=== PATIENT | female | born 1960 | race Two or more races ===

== ENCOUNTER 2017-05-03 15:05 | Inpatient (IN) | payer MEDICAID, OTHER ==
[~2017-05-03] VITALS: Ht 167.6 cm; Wt 113.4 kg
[2017-05-03] MEDS ORDERED: LORazepam 2MG/ML-1ML VIAL ONE (15:12)
[2017-05-03] MEDS ORDERED: SODIUM CHLORIDE 0.9% 1,000 ML IV ONE (15:18)
[2017-05-03] MEDS ORDERED: LORazepam 2MG/ML-1ML VIAL IV ONE ×2 (15:30→16:30)
[2017-05-03 15:48] LABS: Eosinophils # (auto) 0.1 uL; Mean Corpuscular Volume 104.4 fL (80.0-100.0); Mean Platelet Volume 8.6 fL (6.9-10.8); Nucleated Red Blood Cells % 0.2 %
[2017-05-03 15:49] LABS: Basophils # (auto) 0 uL; Basophils % (auto) 0.3 % (0.0-2.0); Eosinophils % (auto) 0.7 % (0.0-7.0); Hematocrit 31.9 % (36.0-46.0); Hemoglobin 10.4 g/dL (12.2-16.2); Lymphocytes # (auto) 1.5 uL; Mean Corpuscular Hemoglobin 33.9 pg (28.0-32.0); Mean Corpuscular Hgb Conc. 32.5 g/dL (32.0-36.0); Monocytes % (auto) 6.9 % (0.0-12.0); Neutrophils # (auto) 11.3 uL; Neutrophils % (auto) 81.1 % (37.0-80.0); Platelet Count (auto) 411 10^3/uL (140-450); Red Cell Distribution Width 16.1 % (11.8-14.3)
[2017-05-03 16:04] LABS: INR 1.27 (0.9-1.15); Partial Thromboplastin Time 23.7 sec (22.64-33.71); Prothrombin Time 13.9 sec (9.37-12.3)
[2017-05-03 16:09] LABS: Lactic Acid w/Reflex 3.7 mmol/L (0.4-2.0)
[2017-05-03 16:10] LABS: Albumin 1.8 g/dL (3.4-5.0); BUN/Creatinine Ratio 10.2; Calcium 7.5 mg/dL (8.5-10.1); Magnesium 1.9 mg/dL (1.6-2.6); Potassium 5.2 mmol/L (3.5-5.1); Total Protein 6.4 g/dL (6.4-8.2)
[2017-05-03 16:19] LABS: REFLEX LACTIC ACID YES OR NO YES
[2017-05-03 16:21] LABS: Urine Blood 2+ /uL (Negative); Urine Color Yellow (Yellow); Urine Glucose Normal (Normal); Urine Ketone Negative (Negative); Urine Mucus FEW (None Seen); Urine Nitrite POSITIVE (Negative); Urine RBC 1 /hpf (0 - 4); Urine Squamous Epithelial Cell FEW /hpf (<5)
[2017-05-03 16:43] LABS: Urine Bilirubin Negative (Negative)
[2017-05-03] MEDS ORDERED: cefTRIAXone 1GM/10ml IVPUSH 10 ML IV ONE (17:00)
[2017-05-03] MEDS ORDERED: LEVOFLOXACIN 500MG 100 ML IV ONE (17:00)
[2017-05-03] MEDS ORDERED: FUROSEMIDE 20 MG/2 ML VIAL IV ONE (17:00)
[2017-05-03] MEDS: LABETALOL HCL 5 MG/ML ML 20ML VIAL IV ONE ×3 (17:00→18:01)
[2017-05-03] MEDS ORDERED: hydrALAZINE HCL 20 MG/ML VL ONE (18:36)
[2017-05-03] MEDS ORDERED: cloNIDine 0.2 mg/24hr 7DAY PATCH TD ONE ×2 (18:36→18:45)
[2017-05-03] MEDS ORDERED: hydrALAZINE HCL 20 MG/ML VL IV ONE (18:45)
[2017-05-03 18:59] LABS: B-Type Natriuretic Peptide 40.95 pg/mL (0-100)
[2017-05-03 19:01] LABS: Temperature: 22.2 C (20.0-25.0)
[2017-05-03] MEDS ORDERED: NICARDIPINE 25MG/250ML BAG KIT 250 ML IV ONE (19:30)
[2017-05-03] MEDS: NICARDIPINE 25MG/250ML BAG KIT 250 ML IV SCH (19:52)
[2017-05-03] MEDS ORDERED: ONDANSETRON HCL 4 MG/2 ML VIAL IV ONE (21:00)
[2017-05-03] MEDS ORDERED: HYDROmorphone HCL 2 MG/ML VL IV ONE (21:00)
[2017-05-03] MEDS ORDERED: NITROGLYCERIN 0.4 MG SL TAB SL PRN (22:15)
[2017-05-03] MEDS ORDERED: HYDROcodone-ACET 5/325MG TAB PO PRN (22:15)
[2017-05-03] MEDS ORDERED: ONDANSETRON HCL 4 MG/2 ML VIAL IV PRN (22:15)
[2017-05-03] MEDS ORDERED: ACETAMINOPHEN 325 MG TAB PO PRN (22:15)
[2017-05-03] MEDS ORDERED: VANCOMYCIN PER PHARMACY 0 MG IV SCH (22:15)
[2017-05-03] MEDS ORDERED: MORPHINE SULF INJ 2 MG/ML SYRINGE 1ML IV PRN (22:15)
[2017-05-03] MEDS: SODIUM CHLORIDE 0.9% 1,000 ML IV SCH (22:30)
[2017-05-03] MEDS ORDERED: VANCOMYCIN 1GM/250ML 250 ML IV ONE (23:00)
[2017-05-03 23:15] LABS: Allen Test Yes; Base Excess 4.5 mmol/L (-2.0-2.0); Blood 02Sat 96.3 % (96-100); Blood COHb 0.3 % (0.5-1.5); Blood MetHb 0.2 % (0.0-1.5); HCO3 28.1 mmol/L (22-26.0); HHb 3.7 % (0.0-5.0); MODE NASAL CANNULA; O2Hb 95.8 % (94.0-97.0); PCO2 37.7 mmHg (35.0-45.0); PCO2(T) 37.7 mmHg (35.0-45.0); PO2 100.4 mmHg (80.0-100.0); PO2(T) 100.4 mmHg (80.0-100.0); Sample Type Arterial
[2017-05-04] VITALS (12 sets, daily range): BP systolic 82–150; BP diastolic 45–92
[2017-05-04] MEDS ORDERED: methylPREDNISolone SOD SUCC 125 MG/2 ML VL IV ONE (00:15)
[2017-05-04] MEDS: NICARDIPINE 25MG/250ML BAG KIT 250 ML IV SCH ×2 (00:45→05:36)
[2017-05-04] MEDS ORDERED: FAMOTIDINE (10MG/ML) 2ML VL IV ONE (00:49)
[2017-05-04] MEDS: PIPERACILLIN-TAZOB 3.375GM 50 ML IV SCH ×4 (01:00→17:50)
[2017-05-04] MEDS ORDERED: ETOMIDATE (2MG/ML) 20ML VIAL IV ONE ×2 (01:04→01:15)
[2017-05-04] MEDS ORDERED: NOREPINEPHRINE 8 MG/250ML KIT 250 ML IV ONE (01:04)
[2017-05-04] MEDS ORDERED: SUCCINYLCHOLINE CHLORIDE 20 MG/ML 10ML VIAL IV ONE ×2 (01:04→01:15)
[2017-05-04] MEDS: NOREPINEPHRINE 8 MG/250ML KIT 250 ML IV SCH (01:20)
[2017-05-04] MEDS: MIDAZOLAM DRIP 50 mg/50mL 50 ML IV SCH (01:20)
[2017-05-04 01:38] LABS: BUN/Creatinine Ratio 10.8; Calcium 7.3 mg/dL (8.5-10.1); Potassium 3.4 mmol/L (3.5-5.1)
[2017-05-04] MEDS ORDERED: ENOXAPARIN SOD 120 MG/0.8 ML SYRINGE SC SCH (05:00)
[2017-05-04 05:21] LABS: Basophils # (auto) 0.2 uL; Eosinophils # (auto) 0 uL; Hematocrit 30.9 % (36.0-46.0); Monocytes # (auto) 0.3 uL
[2017-05-04 05:22] LABS: Basophils % (auto) 1.4 % (0.0-2.0); Eosinophils % (auto) 0.2 % (0.0-7.0); Lymphocytes # (auto) 0.4 uL; Lymphocytes % (auto) 3.3 % (10.0-50.0); Mean Corpuscular Hemoglobin 33.3 pg (28.0-32.0); Mean Corpuscular Hgb Conc. 32.3 g/dL (32.0-36.0); Mean Corpuscular Volume 103.1 fL (80.0-100.0); Mean Platelet Volume 8.5 fL (6.9-10.8); Monocytes % (auto) 2.7 % (0.0-12.0); Neutrophils # (auto) 11.5 uL; Neutrophils % (auto) 92.4 % (37.0-80.0); Nucleated Red Blood Cells % 0.1 %; Platelet Count (auto) 355 10^3/uL (140-450); Red Cell Distribution Width 15.2 % (11.8-14.3); White Blood Cell 12.5 10^3/uL (4.4-10.8)
[2017-05-04 05:33] LABS: Albumin 1.6 g/dL (3.4-5.0); BUN/Creatinine Ratio 10.6; Calcium 7.3 mg/dL (8.5-10.1); Potassium 3.5 mmol/L (3.5-5.1)
[2017-05-04 05:38] LABS: Bilirubin, Total 3.6 mg/dL (0.2-1.0); Total Protein 5.7 g/dL (6.4-8.2)
[2017-05-04] MEDS: LACTULOSE 20Gm/30ML SOLN PO SCH ×5 (06:09→22:10)
[2017-05-04] MEDS ORDERED: IOHEXOL 350 MG/ML 100ML IJ ONE (07:02)
[2017-05-04 09:11] LABS: Hepatitis B Surface Antibody Negative
[2017-05-04 09:37] LABS: Allen Test Modified; Base Excess 4.6 mmol/L (-2.0-2.0); Blood 02Sat 98.2 % (96-100); Blood COHb 0.3 % (0.5-1.5); Blood MetHb 0.3 % (0.0-1.5); HCO3 27.2 mmol/L (22-26.0); HHb 1.8 % (0.0-5.0); MODE VENT - A/C; O2Hb 97.6 % (94.0-97.0); PCO2 33.2 mmHg (35.0-45.0); PCO2(T) 33.2 mmHg (35.0-45.0); PO2 180.5 mmHg (80.0-100.0); PO2(T) 180.5 mmHg (80.0-100.0); Room 1010-ER; Sample Type Arterial; pH 7.531 (7.350-7.450)
[2017-05-04] MEDS ORDERED: FAMOTIDINE (10MG/ML) 2ML VL IV SCH (10:00)
[2017-05-04] MEDS ORDERED: VANCOMYCIN 1,250 MG in SODIUM CHL 0.9% 250 ML IV SCH (10:00)
[2017-05-04] MEDS ORDERED: ENOXAPARIN SOD 40 MG/0.4 ML SYRINGE SC SCH (10:00)
[2017-05-04] MEDS: PANTOPRAZOLE 40 MG/10 ML VIAL IV SCH (10:35)
[2017-05-04] MEDS: SODIUM CHLORIDE 0.9% 1,000 ML IV SCH ×2 (11:45→16:30)
[2017-05-04] MEDS ORDERED: SODIUM CHLORIDE 0.9% 1,000 ML IV SCH (16:15)
[2017-05-04] MEDS ORDERED: VANCOMYCIN 1,250 MG in D5W 5% 250 ML IV SCH (22:00)
[2017-05-04] MEDS: NYSTATIN TOPICAL POWDER 15GM TOP SCH (22:21)
[2017-05-05] VITALS (12 sets, daily range): BP systolic 87–157; BP diastolic 46–97
[2017-05-05] MEDS: PIPERACILLIN-TAZOB 3.375GM 50 ML IV SCH ×4 (00:25→18:30)
[2017-05-05] MEDS: MIDAZOLAM DRIP 50 mg/50mL 50 ML IV SCH ×3 (01:03→12:31)
[2017-05-05] MEDS: NOREPINEPHRINE 8 MG/250ML KIT 250 ML IV SCH (01:15)
[2017-05-05] MEDS: SODIUM CHLORIDE 0.9% 1,000 ML IV SCH ×3 (02:00→22:04)
[2017-05-05] MEDS: LACTULOSE 20Gm/30ML SOLN PO SCH ×6 (02:00→22:00)
[2017-05-05 04:21] LABS: Basophils # (auto) 0.1 uL; Basophils % (auto) 0.5 % (0.0-2.0); Eosinophils # (auto) 0.1 uL; Eosinophils % (auto) 0.9 % (0.0-7.0); Hematocrit 28.5 % (36.0-46.0); Hemoglobin 9.4 g/dL (12.2-16.2); Lymphocytes # (auto) 1.3 uL; Lymphocytes % (auto) 11.1 % (10.0-50.0); Mean Corpuscular Hemoglobin 33.6 pg (28.0-32.0); Mean Corpuscular Hgb Conc. 33.1 g/dL (32.0-36.0); Mean Corpuscular Volume 101.5 fL (80.0-100.0); Mean Platelet Volume 8.2 fL (6.9-10.8); Monocytes # (auto) 0.9 uL; Monocytes % (auto) 7.7 % (0.0-12.0); Neutrophils # (auto) 9.6 uL; Neutrophils % (auto) 79.8 % (37.0-80.0); Platelet Count (auto) 343 10^3/uL (140-450); Red Cell Distribution Width 15.8 % (11.8-14.3)
[2017-05-05 04:26] LABS: INR 1.41 (0.9-1.15); Prothrombin Time 15.4 sec (9.37-12.3)
[2017-05-05 04:49] LABS: Albumin 1.5 g/dL (3.4-5.0); BUN/Creatinine Ratio 10.3; Bilirubin, Total 2.9 mg/dL (0.2-1.0); Calcium 6.9 mg/dL (8.5-10.1); Magnesium 1.6 mg/dL (1.6-2.6); Total Protein 5.5 g/dL (6.4-8.2)
[2017-05-05 07:32] LABS: Allen Test Modified; Base Excess 1.6 mmol/L (-2.0-2.0); Blood 02Sat 96.7 % (96-100); Blood COHb 0.2 % (0.5-1.5); Blood MetHb 0.3 % (0.0-1.5); HCO3 24.1 mmol/L (22-26.0); HHb 3.3 % (0.0-5.0); MODE VENT - A/C; O2Hb 96.2 % (94.0-97.0); PCO2 30.2 mmHg (35.0-45.0); PCO2(T) 30.2 mmHg (35.0-45.0); PO2 98.9 mmHg (80.0-100.0); PO2(T) 98.9 mmHg (80.0-100.0); Room 1010-ER; Sample Type Arterial; pH 7.519 (7.350-7.450)
[2017-05-05] MEDS ORDERED: ENOXAPARIN SOD 120 MG/0.8 ML SYRINGE SC SCH (10:00)
[2017-05-05] MEDS ORDERED: LIDOCAINE 1% IV SCH (10:15)
[2017-05-05] MEDS ORDERED: FUROSEMIDE 20 MG/2 ML VIAL IV ONE (10:15)
[2017-05-05] MEDS ORDERED: POTASSIUM CHL IV SCH (10:15)
[2017-05-05] MEDS ORDERED: POTASSIUM CHLORIDE 40 MEQ, LIDOCAINE 1% (LOCAL ANESTH.) 4 ML in SODIUM CHL 0.9% 100 ML IV ONE (10:45)
[2017-05-05] MEDS: PANTOPRAZOLE 40 MG/10 ML VIAL IV SCH (11:03)
[2017-05-05] MEDS: NYSTATIN TOPICAL POWDER 15GM TOP SCH ×2 (11:03→22:05)
[2017-05-05] MEDS ORDERED: MAGNESIUM SULFATE 1GM/100ML 100 ML IV ONE (11:30)
[2017-05-06] MEDS ORDERED: ENOXAPARIN SOD 40 MG/0.4 ML SYRINGE SC SCH (10:00)
== END 2017-05-05 23:07 | disposition short-term general hospital (02) | DRG 720 ==
LOC: EDUNIT# 15:05 → ER 15:15 → OVERFLOW 15:16
PROVIDERS: ADMIT Nurse Practitioner; ATTEND Internal Medicine
PROC: 5A1935Z Respiratory Ventilation, Less than 24 Consecutive Hours (ICD-10-PCS; principal; 2017-05-04)
PROC: 0BH17EZ Insertion of Endotracheal Airway into Trachea, Via Natural or Artificial Opening (ICD-10-PCS; 2017-05-04)
PROC: 02HV33Z Insertion of Infusion Device into Superior Vena Cava, Percutaneous Approach (ICD-10-PCS; 2017-05-04)
DX: A41.9 Sepsis, unspecified organism (principal); J96.01 Acute respiratory failure with hypoxia; I21.4 Non-ST elevation (NSTEMI) myocardial infarction; N17.0 Acute kidney failure with tubular necrosis; R65.21 Severe sepsis with septic shock; J81.1 Chronic pulmonary edema; G93.41 Metabolic encephalopathy; E43 Unspecified severe protein-calorie malnutrition; L89.303 Pressure ulcer of unspecified buttock, stage 3; K76.0 Fatty (change of) liver, not elsewhere classified; E66.01 Morbid (severe) obesity due to excess calories; E87.5 Hyperkalemia; E87.6 Hypokalemia; F10.10 Alcohol abuse, uncomplicated; F12.90 Cannabis use, unspecified, uncomplicated; I51.7 Cardiomegaly; K52.9 Noninfective gastroenteritis and colitis, unspecified; K70.40 Alcoholic hepatic failure without coma; N39.0 Urinary tract infection, site not specified; N18.3 Chronic kidney disease, stage 3 (moderate); I12.9 Hypertensive chronic kidney disease with stage 1 through stage 4 chronic kidney disease, or unspecified chronic kidney disease; M79.7 Fibromyalgia; M16.0 Bilateral primary osteoarthritis of hip; M47.816 Spondylosis without myelopathy or radiculopathy, lumbar region; Z98.84 Bariatric surgery status; Z86.73 Personal history of transient ischemic attack (TIA), and cerebral infarction without residual deficits; Z90.49 Acquired absence of other specified parts of digestive tract; Z68.41 Body mass index [BMI] 40.0-44.9, adult
CPT/HCPCS: 36415; 36556; 36600; 51702; 70450; 71010; 74176; 76705; 80048; 80053; 80202; 80307; 80320; 81001; 82140; 82805; 83605; 83735; 83880; 84443; 84484; 85025; 85379; 85610; 85730; 86704; 86706; 86708; 86803; 87040; 87070; 87077; 87086; 87088; 87186; 87205; 87340; 93306; 93970; 94003; 96365; 96367; 96375; 99291; C9113; G0378; J0330; J1956; J2001; J2250; J2405; J2543; J3490; J7060

== ENCOUNTER 2017-07-09 11:00 | Inpatient (IN) | payer MEDICAID ==
[~2017-07-09] VITALS: Ht 157.5 cm; Wt 117.7 kg
[2017-07-09] MEDS ORDERED: SODIUM CHLORIDE 0.9% 1,000 ML IV ONE (11:19)
[2017-07-09 12:39] LABS: Hematocrit 32.4 % (36.0-46.0); Hemoglobin 10.5 g/dL (12.2-16.2); Mean Corpuscular Hemoglobin 29.3 pg (28.0-32.0); Mean Corpuscular Hgb Conc. 32.4 g/dL (32.0-36.0); Mean Corpuscular Volume 90.5 fL (80.0-100.0); Platelet Count (auto) 362 10^3/uL (140-450); Red Blood Cells 3.58 10^6/uL (4.0-5.20); Red Cell Distribution Width 17.6 % (11.8-14.3)
[2017-07-09 12:51] LABS: INR 1.26 (0.9-1.15); Partial Thromboplastin Time 25.9 sec (22.64-33.71); Prothrombin Time 13.8 sec (9.37-12.3)
[2017-07-09 12:52] LABS: Basophils % (manual) 0 (0.0-2.0); Eosinophils % (manual) 0 (0-7); Metamyelocytes % 0; Myelocytes % 0
[2017-07-09 12:53] LABS: Blast Cells 0; Promyelocytes % 0; Reactive Lymphocytes 0
[2017-07-09 12:57] LABS: BUN/Creatinine Ratio 15.8; Magnesium 1.3 mg/dL (1.6-2.6); Potassium 3.2 mmol/L (3.5-5.1)
[2017-07-09 13:03] LABS: Albumin 1.5 g/dL (3.4-5.0); Bilirubin, Total 1.8 mg/dL (0.2-1.0); Total Protein 5.7 g/dL (6.4-8.2)
[2017-07-09 13:27] LABS: Band Neutrophils % (manual) 5; Lymphocytes % (manual) 6 (10.0-50.0); Monocytes % (manual) 3 (0-12)
[2017-07-09] MEDS ORDERED: SODIUM CHLORIDE 0.9% 1,000 ML IV SCH (16:02)
[2017-07-09] MEDS ORDERED: NITROGLYCERIN 0.4 MG SL TAB SL PRN ×2 (16:15→16:30)
[2017-07-09] MEDS ORDERED: LINEZOLID 600MG/300ML 300 ML IV SCH (16:15)
[2017-07-09] MEDS ORDERED: LORazepam 0.5 MG TAB PO PRN ×2 (16:15→16:30)
[2017-07-09] MEDS ORDERED: MORPHINE SULFATE 4 MG/ML SYR/VIAL IV PRN ×5 (16:15→16:30)
[2017-07-09] MEDS ORDERED: LACTULOSE 20Gm/30ML SOLN PO PRN ×2 (16:15→16:30)
[2017-07-09] MEDS ORDERED: PIPERACILLIN-TAZOB 3.375GM 50 ML IV ONE ×2 (16:15→16:30)
[2017-07-09] MEDS ORDERED: PROMETHAZINE HCL 25 MG/ML 1ML IV PRN ×2 (16:15→16:30)
[2017-07-09 16:33] LABS: Amylase 7 U/L (25-115); Lipase 22 U/L (73-393)
[2017-07-09 16:47] LABS: Calcium 7.3 mg/dL (8.5-10.1)
[2017-07-09] MEDS ORDERED: metroNIDAZOLE 500MG/100ML 100 ML IV SCH (18:00)
[2017-07-09] MEDS ORDERED: PIPERACILLIN-TAZOB 3.375GM 50 ML IV SCH (18:00)
[2017-07-09] MEDS: metroNIDAZOLE 500MG/100ML 100 ML IV SCH ×2 (18:42→23:00)
[2017-07-09] MEDS: SODIUM CHLORIDE 0.9% 1,000 ML IV SCH (18:47)
[2017-07-09] MEDS: LINEZOLID 600MG/300ML 300 ML IV SCH (19:45)
[2017-07-09 23:28] LABS: Urine Bacteria MANY /hpf (None Seen); Urine Blood Negative /uL (Negative); Urine Mucus FEW (None Seen); Urine WBC 2 /hpf (0 - 5)
[2017-07-10] VITALS (28 sets, daily range): BP systolic 65–161; BP diastolic 27–113
[2017-07-10 00:07] LABS: Alcohol, Urine < 3.0 mg/dL (0-5); Amphetamine Screen, Urine NEGATIVE (NEGATIVE); Barbiturate Scree,Urine NEGATIVE (NEGATIVE); Benzodiazephine Screen, Urine NEGATIVE (NEGATIVE); Cannabinoid Screen, Urine NEGATIVE (NEGATIVE); Cocaine Screen, Urine NEGATIVE (NEGATIVE); Opiate Scree,Urine POSITIVE (NEGATIVE); Phencyclidine Screen, Urine NEGATIVE (NEGATIVE)
[2017-07-10] MEDS: PIPERACILLIN-TAZOB 3.375GM 50 ML IV SCH ×4 (00:29→19:47)
[2017-07-10] MEDS ORDERED: ALBUMIN 5% 250 ML IV ONE (01:45)
[2017-07-10] MEDS: SODIUM CHLORIDE 0.9% 1,000 ML IV SCH ×3 (02:15→19:00)
[2017-07-10] MEDS: LINEZOLID 600MG/300ML 300 ML IV SCH ×2 (03:55→18:30)
[2017-07-10] MEDS: metroNIDAZOLE 500MG/100ML 100 ML IV SCH ×4 (05:00→23:45)
[2017-07-10] MEDS ORDERED: SODIUM CHLORIDE 0.9% 500 ML IV ONE ×2 (05:00→20:35)
[2017-07-10 05:44] LABS: Basophils # (auto) 0.1 uL; Basophils % (auto) 0.3 % (0.0-2.0); Eosinophils # (auto) 0 uL; Hematocrit 28.9 % (36.0-46.0); Hemoglobin 9.6 g/dL (12.2-16.2); Lymphocytes # (auto) 0.6 uL; Lymphocytes % (auto) 2.4 % (10.0-50.0); Mean Corpuscular Hemoglobin 30.2 pg (28.0-32.0); Mean Corpuscular Hgb Conc. 33.2 g/dL (32.0-36.0); Mean Corpuscular Volume 90.9 fL (80.0-100.0); Monocytes # (auto) 0.7 uL; Neutrophils # (auto) 23.5 uL; Neutrophils % (auto) 94.3 % (37.0-80.0); Nucleated Red Blood Cells % 0.1 %; Platelet Count (auto) 407 10^3/uL (140-450); Red Blood Cells 3.17 10^6/uL (4.0-5.20); Red Cell Distribution Width 18.1 % (11.8-14.3); White Blood Cell 24.9 10^3/uL (4.4-10.8)
[2017-07-10 05:47] LABS: INR 1.56 (0.9-1.15); Partial Thromboplastin Time 35.9 sec (22.64-33.71); Prothrombin Time 17.1 sec (9.37-12.3)
[2017-07-10 05:55] LABS: Chloride 110 mmol/L (98-107); Sodium 145 mmol/L (136-145)
[2017-07-10] MEDS ORDERED: METOPROLOL TARTRATE 1MG/1ML-5ML VIAL IV ONE ×2 (05:56→06:15)
[2017-07-10 06:03] LABS: Alanine Aminotransferase 32 U/L (13-56); Albumin 1.6 g/dL (3.4-5.0); Anion Gap 14 (5-15); BUN/Creatinine Ratio 13.3; Blood Urea Nitrogen 16 mg/dL (7-18); Calcium 6.9 mg/dL (8.5-10.1); Carbon Dioxide 21 mmol/L (21-32); GFR African American 59 mL/min; GFR Non-African American 49 mL/min; Glucose 115 mg/dL (74-106)
[2017-07-10 06:06] LABS: Alkaline Phosphatase 133 U/L (45-117); Aspartate Aminotransferase 31 U/L (15-37); Bilirubin, Total 2.6 mg/dL (0.2-1.0)
[2017-07-10 06:13] LABS: Potassium 2.3 mmol/L (3.5-5.1)
[2017-07-10] MEDS ORDERED: POTASSIUM CHL 20 Meq TABLET PO ONE (07:00)
[2017-07-10] MEDS ORDERED: PANTOPRAZOLE 40 MG TAB PO SCH (10:00)
[2017-07-10] MEDS ORDERED: ENOXAPARIN SOD 40 MG/0.4 ML SYRINGE SC SCH (10:00)
[2017-07-10] MEDS: PANTOPRAZOLE 40 MG TAB PO SCH (10:19)
[2017-07-10] MEDS: ENOXAPARIN SOD 40 MG/0.4 ML SYRINGE SC SCH (10:19)
[2017-07-10 12:57] LABS: Cholesterol < 50 mg/dL (< 200); HDL Cholesterol 11 mg/dL (40-59); LDL Cholesterol 27 mg/dL (< 100); Triglycerides 85 mg/dL (< 150)
[2017-07-10] MEDS: NOREPINEPHRINE 8 MG/250ML KIT 250 ML IV SCH ×2 (13:53→17:45)
[2017-07-10] MEDS ORDERED: LACTULOSE 20Gm/30ML SOLN PO ONE (14:30)
[2017-07-10] MEDS ORDERED: PHENYLEPHRINE INJ 20 MG in SODIUM CHL 0.9% 250 ML IV SCH (14:40)
[2017-07-10] MEDS ORDERED: POTASSIUM CHLORIDE 40 MEQ, LIDOCAINE 1% (LOCAL ANESTH.) 4 ML in SODIUM CHL 0.9% 100 ML IV ONE (14:45)
[2017-07-10] MEDS: PHENYLEPHRINE INJ 20 MG in D5W 5% 250 ML IV SCH ×4 (16:00→20:30)
[2017-07-10 16:07] LABS: Albumin 1.3 g/dL (3.4-5.0); BUN/Creatinine Ratio 11.6; Bilirubin, Total 2.8 mg/dL (0.2-1.0); Calcium 6.6 mg/dL (8.5-10.1); Potassium 3.1 mmol/L (3.5-5.1); Total Protein 4.7 g/dL (6.4-8.2)
[2017-07-10] MEDS: MAGNESIUM SULFATE 1GM/100ML 100 ML IV SCH ×2 (17:00→17:57)
[2017-07-10 17:11] LABS: Hematocrit 30.7 % (36.0-46.0); Hemoglobin 9.8 g/dL (12.2-16.2); Mean Corpuscular Hemoglobin 29.8 pg (28.0-32.0); Mean Corpuscular Hgb Conc. 32.1 g/dL (32.0-36.0); Platelet Count (auto) 417 10^3/uL (140-450); Red Cell Distribution Width 18.1 % (11.8-14.3); White Blood Cell 27.1 10^3/uL (4.4-10.8)
[2017-07-10 17:22] LABS: Band Neutrophils % (manual) 0; Basophils % (manual) 0 (0.0-2.0); Blast Cells 0; Eosinophils % (manual) 0 (0-7); Metamyelocytes % 0; Myelocytes % 0; Promyelocytes % 0; Reactive Lymphocytes 0
[2017-07-10 17:41] LABS: Lymphocytes % (manual) 4 (10.0-50.0); Monocytes % (manual) 3 (0-12)
[2017-07-10] MEDS ORDERED: SODIUM CHLORIDE 0.9% 1,000 ML IV ONE ×2 (17:45→22:35)
[2017-07-10] MEDS ORDERED: PHENYLEPHRINE IV 250 ML IV ONE ×2 (18:19→20:24)
[2017-07-10] MEDS: MORPHINE SULFATE 4 MG/ML SYR/VIAL IV PRN (18:30)
[2017-07-10] MEDS ORDERED: LORazepam 2MG/ML-1ML VIAL ONE (21:40)
[2017-07-10] MEDS ORDERED: LORazepam 2MG/ML-1ML VIAL IV ONE (22:00)
[2017-07-10] MEDS ORDERED: HEPARIN 1,000 UNITS/ml 1ML VIAL ONE (22:09)
[2017-07-10] MEDS ORDERED: HEPARIN 1,000 UNITS/ml 1ML VIAL IV ONE (22:15)
[2017-07-11] VITALS (41 sets, daily range): BP systolic 87–246; BP diastolic 39–211
[2017-07-11] MEDS: PIPERACILLIN-TAZOB 3.375GM 50 ML IV SCH ×4 (00:05→18:00)
[2017-07-11] MEDS: PHENYLEPHRINE INJ 20 MG in D5W 5% 250 ML IV SCH ×3 (00:14→08:12)
[2017-07-11] MEDS: SODIUM CHLORIDE 0.9% 1,000 ML IV SCH ×4 (01:45→22:46)
[2017-07-11] MEDS: LINEZOLID 600MG/300ML 300 ML IV SCH ×2 (03:15→15:00)
[2017-07-11] MEDS: MORPHINE SULFATE 4 MG/ML SYR/VIAL IV PRN ×2 (03:58→23:15)
[2017-07-11 04:06] LABS: Hemoglobin 10.8 g/dL (12.2-16.2); Red Cell Distribution Width 18.3 % (11.8-14.3)
[2017-07-11 04:08] LABS: Hematocrit 32.8 % (36.0-46.0); Mean Corpuscular Hemoglobin 29.9 pg (28.0-32.0); Mean Corpuscular Hgb Conc. 32.8 g/dL (32.0-36.0); Mean Corpuscular Volume 91.3 fL (80.0-100.0); Platelet Count (auto) 539 10^3/uL (140-450); Red Blood Cells 3.59 10^6/uL (4.0-5.20)
[2017-07-11 04:22] LABS: Albumin 1.4 g/dL (3.4-5.0); White Blood Cell 42.7 10^3/uL (4.4-10.8)
[2017-07-11 04:23] LABS: Basophils % (manual) 0 (0.0-2.0); Blast Cells 0; Eosinophils % (manual) 0 (0-7); Metamyelocytes % 0; Myelocytes % 0; Promyelocytes % 0; Reactive Lymphocytes 0
[2017-07-11 04:24] LABS: BUN/Creatinine Ratio 8.1
[2017-07-11 04:27] LABS: Bilirubin, Total 3.2 mg/dL (0.2-1.0)
[2017-07-11] MEDS ORDERED: METOPROLOL TARTRATE 1MG/1ML-5ML VIAL IV ONE (05:00)
[2017-07-11] MEDS ORDERED: POTASSIUM CHL 20MEQ/100ML 200 ML IV ONE (05:07)
[2017-07-11] MEDS: POTASSIUM CHL 20MEQ/100ML 100 ML IV SCH ×2 (05:10→07:15)
[2017-07-11 05:26] LABS: Band Neutrophils % (manual) 4; Lymphocytes % (manual) 4 (10.0-50.0); Monocytes % (manual) 2 (0-12)
[2017-07-11] MEDS: metroNIDAZOLE 500MG/100ML 100 ML IV SCH ×4 (05:30→22:43)
[2017-07-11 05:51] LABS: Urine Bacteria FEW /hpf (None Seen); Urine Blood 2+ /uL (Negative); Urine Mucus FEW (None Seen); Urine Specific Gravity 1.029 (1.001-1.035); Urine WBC 9 /hpf (0 - 5)
[2017-07-11] MEDS: NOREPINEPHRINE 8 MG/250ML KIT 250 ML IV SCH ×2 (08:12→21:52)
[2017-07-11] MEDS: PANTOPRAZOLE 40 MG TAB PO SCH (10:00)
[2017-07-11] MEDS ORDERED: SODIUM CHLORIDE 0.9% 1,000 ML IV ONE ×3 (10:15→16:15)
[2017-07-11] MEDS: ENOXAPARIN SOD 40 MG/0.4 ML SYRINGE SC SCH (11:00)
[2017-07-11] MEDS: RIFAXIMIN 550 MG TAB PO SCH ×2 (12:00→22:43)
[2017-07-11] MEDS ORDERED: LORazepam 2MG/ML-1ML VIAL IV PRN (12:00)
[2017-07-11 18:12] LABS: Urine Bacteria FEW /hpf (None Seen); Urine Blood 2+ /uL (Negative); Urine Specific Gravity 1.031 (1.001-1.035); Urine WBC 7 /hpf (0 - 5)
[2017-07-11 18:43] LABS: Protein, Urine 241.2 mg/dL (0.0-11.9)
[2017-07-11] MEDS ORDERED: ROCURONIUM 10MG/ML 10ML VIAL IV ONE (18:52)
[2017-07-11] MEDS ORDERED: ETOMIDATE (2MG/ML) 20ML VIAL IV ONE (18:52)
[2017-07-11] MEDS ORDERED: SUCCINYLCHOLINE CHLORIDE 20 MG/ML 10ML VIAL IV ONE (18:53)
[2017-07-11] MEDS ORDERED: PROPOFOL 100 ML IV SCH (19:51)
[2017-07-11] MEDS ORDERED: MIDAZOLAM DRIP 50 mg/50mL 50 ML IV SCH (19:51)
[2017-07-11] MEDS ORDERED: MIDAZOLAM DRIP 50 mg/50mL 50 ML IV ONE (19:56)
[2017-07-11] MEDS ORDERED: SODIUM CHLORIDE 0.9% 500 ML IV ONE (23:45)
[2017-07-11] MEDS ORDERED: SODIUM BICARBONATE 8.4% INJ 50ML SYRINGE ONE (23:49)
[2017-07-11] MEDS ORDERED: VASOPRESSIN 20 UNIT/ML ONE (23:50)
[2017-07-12] VITALS (67 sets, daily range): BP systolic 39–155; BP diastolic 14–75
[2017-07-12] MEDS: SODIUM BICARBONATE 50ML VIAL 50 ML in SODIUM CHL 0.9% 1,000 ML IV SCH ×2 (00:15→14:50)
[2017-07-12 00:27] LABS: Hematocrit 37.4 % (36.0-46.0); Hemoglobin 11.8 g/dL (12.2-16.2); Mean Corpuscular Hemoglobin 29.1 pg (28.0-32.0); Mean Corpuscular Hgb Conc. 31.6 g/dL (32.0-36.0); Mean Corpuscular Volume 91.8 fL (80.0-100.0); Platelet Count (auto) 488 10^3/uL (140-450); Red Blood Cells 4.07 10^6/uL (4.0-5.20); Red Cell Distribution Width 18.7 % (11.8-14.3)
[2017-07-12] MEDS: PIPERACILLIN-TAZOB 3.375GM 50 ML IV SCH ×4 (00:37→18:00)
[2017-07-12 00:40] LABS: Basophils % (manual) 0 (0.0-2.0); Blast Cells 0; Eosinophils % (manual) 0 (0-7); Metamyelocytes % 0; Myelocytes % 0; Promyelocytes % 0; Reactive Lymphocytes 0; White Blood Cell 40.4 10^3/uL (4.4-10.8)
[2017-07-12 01:01] LABS: Band Neutrophils % (manual) 4; Lymphocytes % (manual) 2 (10.0-50.0); Monocytes % (manual) 3 (0-12)
[2017-07-12 01:03] LABS: Albumin 1.1 g/dL (3.4-5.0); BUN/Creatinine Ratio 9.3; Potassium 3.1 mmol/L (3.5-5.1)
[2017-07-12 01:06] LABS: Bilirubin, Total 2.7 mg/dL (0.2-1.0); Total Protein 4.5 g/dL (6.4-8.2)
[2017-07-12 01:08] LABS: Calcium 5.9 mg/dL (8.5-10.1); INR 2.28 (0.9-1.15); Partial Thromboplastin Time 67.1 sec (22.64-33.71); Prothrombin Time 25.1 sec (9.37-12.3)
[2017-07-12 01:14] LABS: Lactic Acid w/Reflex 6.7 mmol/L (0.4-2.0)
[2017-07-12] MEDS ORDERED: CALCIUM GLUC 4.65meq/50ml D5AE 50 ML IV ONE (02:30)
[2017-07-12] MEDS ORDERED: SODIUM CHLORIDE 0.9% 500 ML IV ONE (02:30)
[2017-07-12] MEDS: PHENYLEPHRINE INJ 40 MG in SODIUM CHL 0.9% 250 ML IV SCH ×2 (03:30→06:11)
[2017-07-12] MEDS: LINEZOLID 600MG/300ML 300 ML IV SCH ×2 (03:30→15:00)
[2017-07-12 04:25] LABS: Hematocrit 38.4 % (36.0-46.0); Hemoglobin 11.9 g/dL (12.2-16.2); Mean Corpuscular Hemoglobin 29.4 pg (28.0-32.0); Mean Corpuscular Hgb Conc. 31.1 g/dL (32.0-36.0); Mean Corpuscular Volume 94.6 fL (80.0-100.0); Platelet Count (auto) 481 10^3/uL (140-450); Red Blood Cells 4.06 10^6/uL (4.0-5.20); Red Cell Distribution Width 19.1 % (11.8-14.3)
[2017-07-12] MEDS: POTASSIUM CHL 20MEQ/100ML 100 ML IV SCH ×2 (04:30→04:39)
[2017-07-12 04:36] LABS: % Iron Saturation 95.3 % (15-50)
[2017-07-12 04:38] LABS: BUN/Creatinine Ratio 10.5; Bilirubin, Total 2.8 mg/dL (0.2-1.0); Potassium 3.4 mmol/L (3.5-5.1); Total Protein 4.6 g/dL (6.4-8.2); Uric Acid 8.3 mg/dL (2.6-6.0)
[2017-07-12 04:40] LABS: Calcium 5.6 mg/dL (8.5-10.1); White Blood Cell 42.4 10^3/uL (4.4-10.8)
[2017-07-12 04:42] LABS: Basophils % (manual) 0 (0.0-2.0); Blast Cells 0; Eosinophils % (manual) 0 (0-7); Metamyelocytes % 0; Myelocytes % 0; Promyelocytes % 0; Reactive Lymphocytes 0
[2017-07-12 05:09] LABS: Band Neutrophils % (manual) 4; Lymphocytes % (manual) 4 (10.0-50.0); Monocytes % (manual) 3 (0-12)
[2017-07-12] MEDS: metroNIDAZOLE 500MG/100ML 100 ML IV SCH ×3 (05:55→17:00)
[2017-07-12] MEDS ORDERED: PHENYLEPHRINE IV 250 ML IV ONE (06:08)
[2017-07-12] MEDS ORDERED: PHENYLEPHRINE HCL 10 MG/ML VL ONE (06:09)
[2017-07-12] MEDS: NOREPINEPHRINE 8 MG/250ML KIT 250 ML IV SCH (08:30)
[2017-07-12] MEDS: ENOXAPARIN SOD 40 MG/0.4 ML SYRINGE SC SCH (10:00)
[2017-07-12] MEDS: PANTOPRAZOLE 40 MG TAB PO SCH (10:00)
[2017-07-12] MEDS ORDERED: PHENYLEPHRINE INJ 40 MG in D5W 5% 250 ML IV SCH ×2 (10:15→14:30)
[2017-07-12] MEDS: RIFAXIMIN 550 MG TAB PO SCH (10:18)
[2017-07-12] MEDS: VASOPRESSIN 50 UNITS in D5W 5% 247.5 ML IV SCH ×3 (12:10)
[2017-07-12] MEDS ORDERED: PHENYLEPHRINE INJ 40 MG in SODIUM CHL 0.9% 250 ML IV SCH (14:30)
[2017-07-12 18:38] LABS: BUN/Creatinine Ratio 7.3
[2017-07-12] MEDS ORDERED: MORPHINE SULFATE 4 MG/ML SYR/VIAL IV PRN (19:00)
[2017-07-12] MEDS ORDERED: LORazepam 2MG/ML-1ML VIAL IV PRN (19:00)
[2017-07-12] MEDS ORDERED: HYOSCYAMINE SULF 0.125 MG TAB SL PRN (19:00)
[2017-07-12] MEDS ORDERED: DOCUSATE SOD 100 MG CAP PO PRN (19:00)
[2017-07-12] MEDS ORDERED: ONDANSETRON HCL 4 MG/2 ML VIAL IV PRN (19:00)
[2017-07-12 19:06] LABS: Calcium 5.9 mg/dL (8.5-10.1)
[2017-07-12 19:09] LABS: Hematocrit 26.4 % (36.0-46.0); Red Blood Cells 2.46 10^6/uL (4.0-5.20)
[2017-07-12 19:10] LABS: Hemoglobin 7.3 g/dL (12.2-16.2); Mean Corpuscular Hemoglobin 29.9 pg (28.0-32.0); Mean Corpuscular Hgb Conc. 27.8 g/dL (32.0-36.0); Mean Corpuscular Volume 107.6 fL (80.0-100.0); Platelet Count (auto) 228 10^3/uL (140-450); Red Cell Distribution Width 19.3 % (11.8-14.3); White Blood Cell 21.5 10^3/uL (4.4-10.8)
[2017-07-12 19:17] LABS: Potassium 7.5 mmol/L (3.5-5.1)
[2017-07-12 19:23] LABS: Band Neutrophils % (manual) 0; Basophils % (manual) 0 (0.0-2.0); Blast Cells 0; Eosinophils % (manual) 0 (0-7); Promyelocytes % 0; Reactive Lymphocytes 0
[2017-07-12 20:07] LABS: Lymphocytes % (manual) 11 (10.0-50.0); Metamyelocytes % 2; Monocytes % (manual) 6 (0-12); Myelocytes % 2
== END 2017-07-12 19:10 | disposition expired | DRG 720 ==
LOC: ER 11:00 → EDBD 11:00 → TELE 11:01 → ER 15:51 → TELE 07-10 15:43 → ICU WEST 07-10 16:35
PROVIDERS: ADMIT Internal Medicine; ATTEND Family Medicine
PROC: 02HV33Z Insertion of Infusion Device into Superior Vena Cava, Percutaneous Approach (ICD-10-PCS; 2017-07-10)
PROC: 5A1935Z Respiratory Ventilation, Less than 24 Consecutive Hours (ICD-10-PCS; principal; 2017-07-11)
PROC: 0BH17EZ Insertion of Endotracheal Airway into Trachea, Via Natural or Artificial Opening (ICD-10-PCS; 2017-07-11)
DX: A41.9 Sepsis, unspecified organism (principal); J96.00 Acute respiratory failure, unspecified whether with hypoxia or hypercapnia; N17.0 Acute kidney failure with tubular necrosis; R65.21 Severe sepsis with septic shock; J69.0 Pneumonitis due to inhalation of food and vomit; G92 Toxic encephalopathy; R18.8 Other ascites; Z68.42 Body mass index [BMI] 45.0-49.9, adult; I50.9 Heart failure, unspecified; L89.153 Pressure ulcer of sacral region, stage 3; Z66 Do not resuscitate; K72.90 Hepatic failure, unspecified without coma; E43 Unspecified severe protein-calorie malnutrition; I11.0 Hypertensive heart disease with heart failure; E87.6 Hypokalemia; E83.42 Hypomagnesemia; E66.01 Morbid (severe) obesity due to excess calories; E87.8 Other disorders of electrolyte and fluid balance, not elsewhere classified; D63.8 Anemia in other chronic diseases classified elsewhere; L03.115 Cellulitis of right lower limb; K74.60 Unspecified cirrhosis of liver; Z83.3 Family history of diabetes mellitus; Z98.84 Bariatric surgery status; Z88.5 Allergy status to narcotic agent; Z90.49 Acquired absence of other specified parts of digestive tract
CPT/HCPCS: 36415; 36600; 71045; 74176; 80048; 80053; 80061; 80307; 81001; 82140; 82150; 82570; 82805; 83540; 83550; 83605; 83690; 83735; 84156; 84300; 84443; 84484; 84550; 85007; 85025; 85027; 85045; 85610; 85652; 85730; 86225; 86235; 87040; 87070; 87081; 87086; 87205; 87493; 93005; 94002; 94003; 94761; 96361; 96365; J0330; J0610; J2001; J2250; J2543; J3480; J3490; J7060